=== PATIENT | male | born 1980 | race Caucasian/White ===

== ENCOUNTER 2020-09-11 00:18 | Emergency (ER) | payer OTHER, SELFPAY ==
--- NOTE | ~2020-09-11 | XR_ITS ---
EXAMINATION: XR CHEST CLINICAL INFORMATION: Fever COMPARISON: 06/21/2019 TECHNIQUE: Frontal view of the chest was obtained. FINDINGS: The lungs are well expanded. There is no focal consolidation, edema, or effusion. Bronchial wall thickening is noted. No pneumothorax. The cardiomediastinal silhouette is within normal limits. No acute osseous abnormality. XR/XR chest 1V IMPRESSION: No dense consolidation. Bronchial wall thickening can be seen with a small airways process such as asthma or atypical/viral infection.
[2020-09-11 02:27] VITALS: BP 123/73; PULSE 110; RESP 20; TEMP 39.5; O2SAT 95; BMI 24.4
--- NOTE | 2020-09-11 03:14 | ED_ITS ---
HPI - General Adult General Chief complaint: Fever Stated complaint: Pinched nerve/fever Time Seen by Provider: 09/11/20 02:45 Source: patient Mode of arrival: ambulatory Limitations: no limitations History of Present Illness HPI narrative: Patient comes to emergency room complaining of fever. Patient states he recently returned from [place], patient went to visit his daughter. Patient denies upper respiratory symptoms, no vomiting, no diarrhea. To his knowledge, patient's daughter and family in [place] are not sick with COVID. Patient also complaining of right-sided neck pain that radiates from the right side of the neck up to the scalp on the right side. Patient states he has had intermittent symptoms since 2007. Patient states that it all started while lifting weights. Related Data Home Medications Medication Instructions Recorded Confirmed No Known Home Meds 09/11/20 09/11/20 Allergies Allergy/AdvReac Type Severity Reaction Status Date / Time SEAFOOD Allergy Unknown HIVES Uncoded 09/11/20 02:33 Review of Systems Review of Systems: Constitutional : No Weight loss, complaining of fever, chills, fatigue ENT/Mouth : No Hearing loss, No Ear Pain, No Nasal Congestion, No Sinus Pain, No Hoarseness, No sore throat, No Rhinorrhea, No Swallowing Difficulty. Complaining of lateral right-sided neck pain radiating towards the scalp Eyes: No Eye Pain, No Swelling, No Redness, No Foreign Body, No Discharge, No Vision Changes Cardiovascular : No Chest Pain, No SOB, No Dyspnea on Exertion, No Orthopnea, No Edema, No Palpitations Respiratory : No Cough, No Sputum, No Wheezing, No Smoke Exposure, No Dyspnea Gastrointestinal : No Nausea, No Vomiting, No Diarrhea, No Constipation, No abdominal Pain, No Hematochezia, No Melena Genitourinary : no irregular bleeding, No Dysuria, No Urinary Frequency, No Hematuria, No Urinary Incontinence, No Urgency, No Flank Pain, No Urinary Flow Changes, No Hesitancy Musculoskeletal : No joint pain, No Myalgias, No Joint Swelling Skin : No Skin Lesions, No rash Neuro : No Weakness, No Numbness, No Paresthesias, No Loss of Consciousness, No Dizziness, No Headache Psych : No Anxiety/Panic, No Depression, No SI/HI/AH/VH, No Social Issues, Heme/Lymph: No Bruising, No Bleeding,No Lymphadenopathy Endocrine : No Polyuria, No Polydipsia, No Temperature Intolerance [facility] Past Medical History Medical History Ruw Pinched nerve in neck Social History Social History Advance Directives: No Physical Exam Vital Signs: Vital Signs: Last Vital Signs Temp 103.1 F H 09/11/20 02:27 Pulse 110 H 09/11/20 02:27 Resp 20 09/11/20 02:27 BP 123/73 09/11/20 02:27 Pulse Ox 95 09/11/20 02:27 Body Mass Index 24.4 Appearance: Alert. Oriented X3. No acute distress. Eyes: Pupils equal, round and reactive to light. ENT: Pharynx normal. Neck: Normal inspection. Neck supple. No lymph nodes noted. No crepitus, patient is able to flex and extend the neck and rotate sideways with no range of motion limit or pain CVS: Normal heart rate and rhythm. Pulses normal. Normal S1 and S2 Respiratory: No respiratory distress. Breath sounds normal. No Wheezing. No rales Abdomen: Soft and nontender. No rigidity. No distention. good BS x4 Skin: Skin warm and dry. Normal skin color. Normal skin turgor. Extremities: No lower extremity edema. No lower extremity edema. No Lacerations. No Rash Neuro: Oriented X 3. No motor deficit. No sensory deficit. Moving all exterm ities. No slurred speech. Course Course Course Narrative: Patient is afebrile, states that he feels well. Patient continues having intermittent pain, states sometimes it is on the right side, sometimes on the left side, however he is able to fully flex extend and rotate his neck with no stiffness, denies headache, no altered mental status. At this time, viral/bacterial meningitis is not suspected. However, I discussed with the patient that if he develops any neck stiffness, has any new symptoms, he needs to return to the emergency room, and in that case, he will likely need a lumbar puncture. At this time, it is likely that there to different issues going on, 1st is the acute on chronic intermittent neck pain, and 2nd issue is the new viral syndrome. Patient tested negative for COVID Medical Decision Making Lab Data Result diagrams: 09/11/20 03:39 09/11/20 03:39 Labs: Lab Results 02/09/11/20 09/11/20 Range/Units 03:39 03:39 03:39 WBC 11.1 H (4.8-10.8) X10*3/uL RBC 3.98 L (4.60-5.80) X10*6/uL Hgb 12.4 L (14.0-18.0) g/dl Hct 35.2 L (42-52) % MCV 88.4 (80-98) fL MCH 31.2 (27.0-33.0) pg MCHC 35.2 (31.0-36.0) g/dl RDW 11.9 (11.0-16.0) % Plt Count 207 (160-400) X10*3/uL MPV 9.1 L (9.4-12.4) fL Immature Gran % (Auto) 0.4 (0.0-0.4) % Neut % (Auto) 75.7 H (45-73) % Lymph % (Auto) 16.0 L (20-40) % Braxton % (Auto) 7.7 (2-11) % Eos % (Auto) 0.1 (0-4) % Baso % (Auto) 0.1 (0-2) % Lymph # (Auto) 1.8 (1.2-4.9) X10*3/uL Braxton # (Auto) 0.9 (0.1-1.2) X10*3/uL Eos # (Auto) 0.0 (0.0-0.4) X10*3/uL Baso # (Auto) 0.0 (0.0-0.2) X10*3/uL Abs Immat Gran (auto) 0.05 H (0.00-0.03) X10*3/uL Absolute Neuts (auto) 8.4 H (2.0-8.3) X10*3/uL Absolute Nucleated RBC 0.000 (0.0-0.012) X10*3/uL Nucleated RBC % (auto) 0.0 (0.0-0.2) /100WBC Sodium 137 (135-145) mmol/L Potassium 3.5 (3.3-5.1) mmol/L Chloride 105 (96-108) mmol/L Carbon Dioxide 22 (22-29) mmol/L Anion Gap 14 (12-20) BUN 12 (9-16) mg/dL Creatinine 1.11 (0.5-1.4) mg/dL Estim Creat Clear Calc 95.1 Estimated GFR > 60 Random Glucose 116 H (60-115) mg/dL Lactic Acid 0.9 (0.5-2.0) mmol/L Calcium 8.0 L (8.4-10.2) mg/dL Coronavirus (PCR) (Negative) Influenza Type A (PCR) (Negative) Influenza Type B (PCR) (Negative) RSV RNA Qual (PCR) (Negative) 09/11/20 Range/Units 03:39 WBC (4.8-10.8) X10*3/uL RBC (4.60-5.80) X10*6/uL Hgb (14.0-18.0) g/dl Hct (42-52) % MCV (80-98) fL MCH (27.0-33.0) pg MCHC (31.0-36.0) g/dl RDW (11.0-16.0) % Plt Count (160-400) X10*3/uL MPV (9.4-12.4) fL Immature Gran % (Auto) (0.0-0.4) % Neut % (Auto) (45-73) % Lymph % (Auto) (20-40) % Braxton % (Auto) (2-11) % Eos % (Auto) (0-4) % Baso % (Auto) (0-2) % Lymph # (Auto) (1.2-4.9) X10*3/uL Braxton # (Auto) (0.1-1.2) X10*3/uL Eos # (Auto) (0.0-0.4) X10*3/uL Baso # (Auto) (0.0-0.2) X10*3/uL Abs Immat Gran (auto) (0.00-0.03) X10*3/uL Absolute Neuts (auto) (2.0-8.3) X10*3/uL Absolute Nucleated RBC (0.0-0.012) X10*3/uL Nucleated RBC % (auto) (0.0-0.2) /100WBC Sodium (135-145) mmol/L Potassium (3.3-5.1) mmol/L Chloride (96-108) mmol/L Carbon Dioxide (22-29) mmol/L Anion Gap (12-20) BUN (9-16) mg/dL Creatinine (0.5-1.4) mg/dL Estim Creat Clear Calc Estimated GFR Random Glucose (60-115) mg/dL Lactic Acid (0.5-2.0) mmol/L Calcium (8.4-10.2) mg/dL Coronavirus (PCR) NEGATIVE (Negative) Influenza Type A (PCR) NEGATIVE (Negative) Influenza Type B (PCR) NEGATIVE (Negative) RSV RNA Qual (PCR) NEGATIVE (Negative) Imaging Data Chest x-ray: Radiologist's impression: The lungs are well expanded. There is no focal consolidation, edema, or effusion. Bronchial wall thickening is noted. No pneumothorax. The cardiomediastinal silhouette is within normal limits. No acute osseous abnormality. XR/XR chest 1V IMPRESSION: No dense consolidation. Bronchial wall thickening can be seen with a small airways process such as asthma or atypical/viral infection. Discharge Plan Discharge Clinical Impression: Acute viral syndrome Patient Disposition: Home, Self-Care Instructions: Viral Syndrome (ED) Additional Instructions: If you have any neck stiffness, headache, any new symptoms, please return to the emergency room. Please follow-up with your primary care physician tomorrow. If you have any worsening or new symptoms, please return to the emergency room or call 911 Prescriptions: No Action No Known Home Meds RF: 0
[2020-09-11 03:51] LABS: MANUAL DIFF FLAG NO
[2020-09-11 03:52] LABS: Basophils Percent Auto 0.1 % (0-2); Eosinophils Percent Auto 0.1 % (0-4); Hematocrit 35.2 % (42-52); Hemoglobin 12.4 g/dl (14.0-18.0); Imm Gran Abs Auto 0.05 X10*3/uL (0.00-0.03); Imm Gran Pct Auto 0.4 % (0.0-0.4); Lymphocytes Absolute Auto 1.8 X10*3/uL (1.2-4.9); Mean Corpuscular HGB Conc 35.2 g/dl (31.0-36.0); Mean Corpuscular Hemoglobin 31.2 pg (27.0-33.0); Mean Corpuscular Volume 88.4 fL (80-98); Mean Platelet Volume 9.1 fL (9.4-12.4); Monocytes Absolute Auto 0.9 X10*3/uL (0.1-1.2); Monocytes Percent Auto 7.7 % (2-11); Neutrophils Absolute Auto 8.4 X10*3/uL (2.0-8.3); Neutrophils Percent Auto 75.7 % (45-73); Platelet Count 207 X10*3/uL (160-400); Red Blood Count 3.98 X10*6/uL (4.60-5.80); Red Cell Distribution Width 11.9 % (11.0-16.0); White Blood Count 11.1 X10*3/uL (4.8-10.8)
[2020-09-11 04:00] VITALS: BP 134/78; PULSE 96; RESP 16; O2SAT 98
[2020-09-11] MEDS: Acetaminophen 325 MG TABLET 650 MG PO (04:19)
[2020-09-11] MEDS: 0.9 % Sodium Chloride 1,000 ML 999 ML IVCONT (04:19)
[2020-09-11 04:25] LABS: Lactic Acid 0.9 mmol/L (0.5-2.0)
[2020-09-11 04:28] LABS: Anion Gap 14 (12-20); Blood Urea Nitrogen 12 mg/dL (9-16); Carbon Dioxide 22 mmol/L (22-29); Chloride 105 mmol/L (96-108); Creatinine Clr Calc Pharmacy 95.1; Estimated Glomerular Filt Rate > 60; Glucose Random 116 mg/dL (60-115); Potassium 3.5 mmol/L (3.3-5.1); Sodium 137 mmol/L (135-145)
[2020-09-11 04:44] LABS: Influenza A PCR NEGATIVE (Negative); Influenza B PCR NEGATIVE (Negative); Resp Syncy Virus RNA Qual PCR NEGATIVE (Negative); SARS COV2 PCR INHOUSE NEGATIVE (Negative)
[2020-09-11 06:00] VITALS: BP 112/63; PULSE 87; RESP 16; TEMP 37.7; O2SAT 99
== END 2020-09-11 06:30 | disposition home or self-care (01) ==
PROVIDERS: Emergency Provider Emergency Medicine; PCP Family Medicine
DX: B34.9 Viral infection, unspecified (principal); Z20.822 Contact with and (suspected) exposure to COVID-19
CPT/HCPCS: 0241U; 36415; 71045; 80048; 83605; 85025; 87040; 96360; 99284; 99285

== ENCOUNTER 2020-11-05 18:21 | Outpatient (REF) | payer OTHER, SELFPAY ==
--- NOTE | ~2020-11-05 | MR_ITS ---
MR CERVICAL SPINE WITHOUT CONTRAST CLINICAL INFORMATION: Cervical radiculopathy. COMPARISON: None available. TECHNIQUE: MRI of the cervical spine was obtained using routine sequences without contrast. FINDINGS: Severe leftward convex scoliotic curvature of the thoracic spine. Straightening the cervical lordosis. The vertebral body heights are maintained. There is mild disc volume loss at C5-C6. There is no bone marrow edema. There are no acute fractures. Craniocervical junction is unremarkable. There is no cord signal abnormality. The cervical arterial flow voids are maintained. No significant soft tissue findings. Partially imaged intracranial compartment is unremarkable. C2-C3: Advanced right-sided facet arthropathy results in mild to moderate right-sided foraminal stenosis. No central canal and no left foraminal stenosis. C3-C4: Shallow central disc protrusion without central canal stenosis. Bilateral. No foraminal stenosis. C4-C5: Disc osteophyte results in mild to moderate central canal stenosis. Uncovertebral joint spurring and facet arthropathy result in moderate to severe left-sided foraminal stenosis. C5-C6: Disc osteophyte results in mild to moderate central canal stenosis. Uncovertebral joint hypertrophy and hypertrophic facet arthropathy result in severe left-sided foraminal stenosis. C6-C7: Disc osteophyte results in mild to moderate central canal stenosis. Uncovertebral joint spurring and facet arthropathy result in mild right-sided foraminal encroachment. C7-T1: Slight annular disc bulge. No central canal stenosis and no foraminal stenosis. MR/MR cervical spine wo con IMPRESSION: - Multilevel cervical spondylosis. Spondylitic changes result in mild to moderate central canal stenosis and slight flattening of the ventral cord at the C4-C5, C5-C6, and C6-C7 levels. Spondylitic changes also result in mild to moderate right C2-C3, moderate to severe left C4-C5, severe left C5-C6, and mild right C6-C7 foraminal stenosis. - Partially imaged severe leftward convex scoliotic curvature of the thoracic spine.
== END 2020-11-05 18:22 | disposition home or self-care (01) ==
LOC: HO.MRI 18:21
PROVIDERS: Visit Provider Neurological Surgery
DX: M54.12 Radiculopathy, cervical region (principal)
CPT/HCPCS: 72141

== ENCOUNTER 2021-12-26 18:59 | Emergency (ER) | payer OTHER, SELFPAY ==
[2021-12-26 19:10] VITALS: BP 109/77; PULSE 71; RESP 15; TEMP 36.9; O2SAT 100; BMI 25.7
== END 2021-12-26 19:58 | disposition left against medical advice (07) ==
PROVIDERS: Emergency Provider Emergency Medicine; PCP Internal Medicine
DX: M54.50 Low back pain, unspecified (principal); M62.830 Muscle spasm of back
CPT/HCPCS: 99281

== ENCOUNTER 2023-01-24 11:08 | Emergency (ER) | payer SELFPAY ==
[2023-01-24 11:52] VITALS: BP 111/57; PULSE 69; RESP 18; TEMP 37; O2SAT 98; BMI 25.8
[2023-01-24 14:42] VITALS: BP 126/77; PULSE 63; RESP 18; TEMP 36.3; O2SAT 99
--- NOTE | 2023-01-24 14:57 | PC.NURSE ---
pt medicated per SEP for 03/01 rigth shoulder pain
--- NOTE | 2023-01-24 15:08 | ED.EXTPRO ---
HPI - Extremity Problem General Chief complaint: Extremity Injury, Upper Stated complaint: R Shoulder & Back Pain Time Seen by Provider: 01/24/23 14:02 Source: patient Mode of arrival: ambulatory Limitations: no limitations History of Present Illness HPI Narrative: Patient is a 42 year old male with no medical history presents with 2 weeks of right shoulder pain following exercise. Patient reports the pain is located in his right shoulder, the right side of his neck, and down his upper arm at times. Patient reports it feels tight and pinching . Patient reports limited overhead movement of the right arm. Patient denies taking any medications or using heat/cold packs to treat the pain. He reports heavy lifiting at gym usually and does dips often. Also reports he has still been going to the gym over the past few weeks however lifting less than usual. Patient denies fever, chills, night sweats, nausea, vomiting, headache, vision changes, numbness, or tingling. Related Data Previous Rx's Medication Instructions Recorded cyclobenzaprine 10 mg tablet 10 mg PO BEDTIME PRN muscle spasm 09/13/20 10 days #30 tabs ibuprofen 800 mg tablet 800 mg PO Q8H PRN pain 10 days #30 09/13/20 tabs ketorolac 10 mg tablet 10 mg PO TID PRN pain 5 days #15 01/24/23 tabs lidocaine 5 % topical patch 1 patch topical DAILY PRN pain #15 01/24/23 ea Allergies Allergy/AdvReac Type Severity Reaction Status Date / Time SEAFOOD Allergy Unknown HIVES Uncoded 09/11/20 02:33 Review of Systems Review of Systems: Constitutional : No Weight loss, No Fever, No Chills, No Fatigue, No Malaise ENT/Mouth : No sore throat, No Rhinorrhea Eyes: No Eye Pain, No Swelling, No Redness Cardiovascular : No Chest Pain, No SOB, No Dyspnea on Exertion, No Orthopnea, No Edema, No Palpitations Respiratory : No Cough, No Sputum, No Wheezing Gastrointestinal : No Nausea, No Vomiting, No Diarrhea, No Constipation, No abdominal Pain, No Hematochezia, No Melena Genitourinary : No Dysuria, No Urinary Frequency, No Hematuria, Musculoskeletal : + joint pain, No Myalgias, + Joint Swelling Skin : No Skin Lesions, No rash Neuro : No Weakness, No Numbness, No Dizziness, No Headache Psych : No Anxiety/Panic, No Depression All other systems reviewed and are negative Yes all other systems are reviewed and are negative [facility] Past Medical History Attestation statement: The following information was validated with the patient. Source: old records reviewed and nursing notes reviewed Medical History (Updated 01/24/23 @ 15:27 by JESSICA Churchill) [place] Physical exam Pinched nerve in neck Family History Family History Mother No problems noted. Father No problems noted. Social History Social History Alcohol intake: current Alcohol intake frequency: former alcohol drinker Advance Directives: No Advance Directives Information Provided: Yes Physical Exam Vital Signs: Vital Signs: Last Vital Signs Temp 97.4 F 01/24/23 14:42 Pulse 63 01/24/23 14:42 Resp 18 01/24/23 14:42 BP 126/77 01/24/23 14:42 Pulse Ox 99 01/24/23 14:42 O2 Del Method Room Air 01/24/23 14:42 BMI result Body Mass Index 25.8 VSS Appearance: Alert.? Oriented X3.? No acute distress.? Head: Normocephalic, atraumatic, no step-offs or deformities Eyes: Pupils equal, round and reactive to light.? Neck: Normal inspection.? Neck supple.? CVS: Normal heart rate and rhythm.? Pulses normal.? Respiratory: No respiratory distress.? Breath sounds normal.? Abdomen: Soft and nontender.? Skin: Skin warm and dry.? Normal skin color.? Normal skin turgor.? Extremities: Limited overhead ROM of the right upper extremity. Tenderness to palpation to the right shoulder region to distal clavicle region. 2+ radial pulses equal and b/l. No wrist drop. Normal cap refill <2 seconds to b/l UE digits. 5/5 strength to bilateral upper and lower extremities Back: No midline tenderness, no C-spine tenderness, full range of motion, no CVA tenderness bilaterally Neuro: Oriented X 3.? No motor deficit.? No sensory deficit. CN 2-12 intact Course Reevaluation(s) Reevaluation #1: xray unremarkable. patient dc home w/ tordol. Ortho follow up encouraged. Eduated on worrisome signs and sx. Patient verbalizes understanding. Time: 17:03 Medications Administered Discontinued Medications Generic Name Dose Route Start Last Admin Trade Name Cheryl PRN Reason Stop Dose Admin Ketorolac Tromethamine 30 mg 01/24/23 14:51 01/24/23 14:55 Ketorolac Tromethamine 15 Mg/Ml Vial IM 01/24/23 14:52 30 mg ONCE ONE Administration Medical Decision Making Medical Decision Making MDM Narrative: Patient is a 42 year old male with no past medical history presenting with 2 weeks of right shoulder pain and limited overhead range of motion which started after exercising at the gym. Physical exam shows limited overhead ROM of the right upper extremity and some tenderness to palpation to distal clavicle region. 2+ radial pulses equal and b/l. No wrist drop. Normal cap refill <2 seconds to b/l UE digits. Patient most likely is experiencing tendonitis/ ligament injury vs spasm, vs muscle tear vs rotator cuff injury. Unlikely fx, dislocaiton, threat to limb, no signs of NV compromise. Plan- xray, medication w/ torol reeval Differential Diagnosis Differential Diagnoses: The differential diagnosis associated with the presentation includes Patient most likely is experiencing tendonitis/ ligament injury vs spasm, vs muscle tear vs rotator cuff injury. Unlikely fx, dislocaiton, threat to limb, no signs of NV compromise. Admission/Observation Consideration of admission/observation: Escalation of care including admission/observation considered Unlikely Independent Interpretation I performed an independent interpretation of an: Plain X-Ray (normal ) Radiology Impression Discussion of test interpretation with radiology: I have reviewed the radiologist's reading. Prescription Management I considered prescription management with: Pain Medication (toradol ) Core Measures AMI core measures followed: Yes Measure exclusions: not indicated Critical Care Time Critical Care Time Critical Care Time: No Discharge Plan Discharge Clinical Impression: Pain in right shoulder, Shoulder tendinitis Patient Disposition: Home, Self-Care Instructions: Rotator Cuff Tendinitis (ED), Shoulder Pain (ED) Additional Instructions: Take your medications as prescribed. If you were prescribed antibiotics today, it is important that you take your medication to their entirety, do not skip any doses, do not finish them early. Follow-up with your primary care provider this week. Return to the emergency department with new or worsening symptoms. Such as fevers, chills, chest pain, shortness of breath, nausea, vomiting, dizziness, headache, vision changes, lethargy In case of emergency call 911 Toradol has been sent to your pharmacy, you tolerated this well in the department. Please take this as prescribed do not take this with ibuprofen, or other NSAIDs, do not mix this with alcohol. Side effects of this medication including increased risk for bleeding and possible kidney injury. Follow-up with the orthopedic team if needed Prescriptions: New ketorolac 10 mg tablet 10 mg PO TID PRN (Reason: pain) 5 Days Qty: 15 0RF lidocaine 5 % adhesive patch,medicated 1 patch topical DAILY PRN (Reason: pain) Qty: 15 0RF Rx Instructions: leave on most painful area for up to 12 hrs No Action ibuprofen 800 mg tablet 800 mg PO Q8H PRN (Reason: pain) 10 Days Qty: 30 0RF cyclobenzaprine 10 mg tablet 10 mg PO BEDTIME PRN (Reason: muscle spasm) 10 Days Qty: 30 0RF Referrals: [facility] [place] Orthopedic Surgeons [Provider Group] - 2 weeks Arturo Vega MD [Primary Care Provider] - 2 days Stand Alone Forms: Work/School Release Interventions: ED Discharge Assessment Last Done: 01/24/23 16:53 Discharge Date/Time: 01/24/23 16:54
== END 2023-01-24 16:54 | disposition home or self-care (01) ==
PROVIDERS: Emergency Provider Emergency Medicine Emergency Medical Services; PCP Internal Medicine
DX: M25.511 Pain in right shoulder (principal); M77.8 Other enthesopathies, not elsewhere classified
CPT/HCPCS: 73030; 96372; 99284; J1885

== ENCOUNTER 2023-02-20 12:52 | Emergency (ER) | payer MEDICAID, SELFPAY ==
[2023-02-20 12:58] VITALS: BP 123/80; PULSE 84; RESP 20; TEMP 36.3; O2SAT 97; BMI 26.1
--- NOTE | 2023-02-20 12:59 | ED_ITS ---
HPI - General Adult General Chief complaint: General Medical Stated complaint: Hemorrhoids Time Seen by Provider: 02/20/23 13:42 Source: patient Limitations: language barrier History of Present Illness HPI narrative: 43-year-old male who presents to the ER complaining of hemorrhoids. 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 Patient states no prior history of hemorrhoids. patient states he has been constipated recently. No nausea vomiting abdominal pain at this time. No prior history of similar episodes. Symptoms mild to moderate pain 8/. No other complaints Related Data Previous Rx's Medication Instructions Recorded cyclobenzaprine 10 mg tablet 10 mg PO BEDTIME PRN muscle spasm 09/13/20 10 days #30 tabs ibuprofen 800 mg tablet 800 mg PO Q8H PRN pain 10 days #30 09/13/20 tabs ketorolac 10 mg tablet 10 mg PO TID PRN pain 5 days #15 01/24/23 tabs lidocaine 5 % topical patch 1 patch topical DAILY PRN pain #15 01/24/23 ea docusate sodium 100 mg capsule 100 mg PO BID #20 caps 02/20/23 (Colace) hydrocortisone 2.5 % topical cream 1 appl MA BID PRN hemorrhoids 7 02/20/23 with perineal applicator days #30 grams (Anusol-HC) Allergies Allergy/AdvReac Type Severity Reaction Status Date / Time SEAFOOD Allergy Unknown HIVES Uncoded 09/11/20 02:33 Review of Systems Review of Systems: General: No fever, no chills Ophthalmology: No vision changes, no discharge ENT: No sore throat, no ear pain Cardiovascular: No chest pain, no peripheral edema, no shortness of breath Respiratory: No dyspnea, no sputum production, no cough Muscle skeletal: No malaise, no back pain, no neck pain, no extremity pain GI: Positive hemorrhoids Psychiatric: No depression, no suicidal ideation, no homicidal ideation Skin: No rash PMFSH Past Medical History Attestation statement: The following information was validated with the patient. Medical History [place] Physical exam Pinched nerve in neck Family History Family History Mother No problems noted. Father No problems noted. Social History Social History Alcohol intake: current Alcohol intake frequency: former alcohol drinker Advance Directives: No Advance Directives Information Provided: Yes Physical Exam ED Vital Signs: Vital Signs - 24 hr 02/20/23 12:58 Temperature 97.3 F Pulse Rate 84 Respiratory Rate 20 Blood Pressure 123/80 Pulse Oximetry 97 Oxygen Delivery Method Room Air BMI result Body Mass Index 26.1 General appearance: Awake, alert, cooperative, in no acute distress Skin: Warm, dry, no rash Eyes: no icterus ENT: Oropharynx normal, uvula midline Neck: Soft supple full range of motion Pulmonary: Breath sounds clear to auscultation bilaterally, no accessory muscle use Cardiovascular: Regular rate and rhythm, no murmurs and rubs Abdomen: Soft nontender, no rebound or guarding, positive bowel sounds Rectal: Positive to moderate sized hemorrhoids fluctuant in nature do not appear thrombosed positive tenderness Extremities: No deformity, nontender, no peripheral edema noted Neuro: Alert oriented x3, no focal deficit Psych: Normal affect Course Course Course Narrative: RME - 43 yo male presenting with hemorrhoid pain for the last 3 days. Was recently constipated but last BM yesterday and it was normal. Using OTC cream with no relief. Scant bleeding. Has pain w/ sitting and itching Plan: rectal exam Medical Decision Making Medical Decision Making [facility] Narrative: 43-year-old male complaining of hemorrhoids since Sunday. Recent episode of constipation no similar episodes in the past. On exam patient has fluctuating moderate-sized hemorrhoid will refer to albert marvin for continued management will place on Anusol and Colace at this time Differential Diagnosis Hemorrhoids Constipation Thrombosed hemorrhoid Discharge Plan Discharge Clinical Impression: External hemorrhoid Patient Disposition: Home, Self-Care Instructions: Hemorrhoids (ED) Additional Instructions: Follow-up with surgeon for continued management of her hemorrhoids. Medications as directed Return if symptoms worsen Prescriptions: New docusate sodium [Colace] 100 mg capsule 100 mg PO BID Qty: 20 0RF hydrocortisone [Anusol-HC] 2.5 % cream with perineal applicator 1 appl MA BID PRN (Reason: hemorrhoids) 7 Days Qty: 30 0RF No Action ketorolac 10 mg tablet 10 mg PO TID PRN (Reason: pain) 5 Days Qty: 15 0RF lidocaine 5 % adhesive patch,medicated 1 patch topical DAILY PRN (Reason: pain) Qty: 15 0RF Rx Instructions: leave on most painful area for up to 12 hrs ibuprofen 800 mg tablet 800 mg PO Q8H PRN (Reason: pain) 10 Days Qty: 30 0RF cyclobenzaprine 10 mg tablet 10 mg PO BEDTIME PRN (Reason: muscle spasm) 10 Days Qty: 30 0RF Referrals: Vishnu Saeed MD [Physician] - ( non thrombosed external hemorrhoids) Stand Alone Forms: Work/School Release
== END 2023-02-20 14:21 | disposition home or self-care (01) ==
PROVIDERS: Emergency Provider Emergency Medicine; PCP Internal Medicine
DX: K64.4 Residual hemorrhoidal skin tags (principal)
CPT/HCPCS: 99282; 99283

== ENCOUNTER 2023-02-28 13:32 | Outpatient (AMB) | payer OTHER, SELFPAY ==
--- NOTE | 2023-02-28 13:41 | A.OFFVIS_ITS ---
Intake Vital Signs 02/28/23 13:47 Height 5 ft 11 in Weight 188 lb BMI 26.2 BP 117/57 L Blood Pressure Location Rt brachial Position Sitting Pulse 73 Intake Visit Reasons: Hemorrhoids Intake Note: This patient presents for an assessment for hemorrhoids. Patient c/o; denies rectal bleeding, reports pain, denies constipation. Learning Consultant Required: No Accompanied by: Self / Same As Patient Allergies SEAFOOD Allergy (Unknown, Uncoded 09/11/20 02:33) HIVES Medication List - Last Reconciled 02/28/23 by Wander Rose MD cyclobenzaprine 10 mg PO BEDTIME PRN 10 days docusate sodium (Colace) 100 mg PO BID hydrocortisone 2.5% (Anusol-HC) 1 appl [place] BID PRN 7 days ibuprofen 800 mg PO Q8H PRN 10 days ketorolac 10 mg PO TID PRN 5 days lidocaine 5% 1 patch topical DAILY PRN HPI Hemorrhoids HPI Details 43-year-old male here for problematic hemorrhoids. He says about 10 days ago, he was having multiple bowel movement because of what he thought was diarrhea. After that, he noticed that he had an area of swelling outside the anus. He says this was firm and was very painful then for a few days. He would notice a lot of blood as well with bowel movements. He says that since the past few days, this swelling has gone down significantly. He does still notice blood on wiping periodically after bowel movements. He says he does not have any problem with constipation. 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 [facility], [facility] Medical History (Updated 02/28/23 @ 14:01 by Wander Rose MD) [place] Physical exam Pinched nerve in neck Thrombosed external hemorrhoids Family History Mother No problems noted. Father No problems noted. Social History Alcohol intake: current Alcohol intake frequency: former alcohol drinker Review of Systems Const Denies chills and Denies fever(s) Card Denies chest pain, Denies dyspnea and Denies dyspnea on exertion Resp Denies cough, Denies dyspnea and Denies dyspnea on exertion GI Reports hematochezia and Denies change in bowel habits Denies hematuria and Denies difficulty urinating Musc Denies back pain and Denies limited range of motion Neuro Denies focal weakness and Denies convulsions Psych Denies depression and Denies mood swings Physical Exam Vital Signs: Last Vital Signs Pulse 73 02/28/23 13:47 BP 117/57 L 02/28/23 13:47 BMI result Body Mass Index 26.2 Const General: comfortable and no acute distress Orientation/consciousness: patient oriented x3 Neck Neck: Yes no lymphadenopathy Resp Auscultation: clear to auscultation bilaterally Cardio Rhythm: regular rhythm GI Other: Rectal exam she does large external hemorrhoids mostly on the left side Palpation (GI): Soft to palpation, nontender and no guarding Neuro General: patient oriented x3 Office Procedures Anoscopy He was in yosi-knife position. The anoscope was gently inserted. A full examination of the anal canal was done. He had large thrombosed hemorrhoids on the left and right side although these were nonpainful. He have any fissure any other lesions. There was some blood seen on the anoscope and the exam finger. There was no induration. [id number] Assessment & Plan Assessment & Plan (1) Thrombosed external hemorrhoids: Code(s): K64.5 - Perianal venous thrombosis Plan: He has large thrombosed external hemorrhoids. His pain and I are on the down swing so I told him we do not need to proceed with drainage at this time. I instructed him to do warm soaks to the area or hot Sitz baths. I will prescribe him Calmoseptine to help with this discomfort I will see him again in about 2-3 weeks as he says he seems to be interested in hemorrhoidectomy for this. Coding Level of Care Code New Pt Level 3 (44414) Diagnoses Thrombosed external hemorrhoids K64.5 CPT Codes Details - CPT: 46647-[id number] ([id number])
[2023-02-28 13:47] VITALS: BP 117/57; PULSE 73; BMI 26.2
== END 2023-02-28 14:03 | disposition home or self-care (01) ==
PROVIDERS: PCP Internal Medicine; Visit Provider Surgery
DX: K64.5 Perianal venous thrombosis (principal)
CPT/HCPCS: 46600; 99203

== ENCOUNTER → 2023-02-28 13:32 | Outpatient (BNVA) | payer OTHER, SELFPAY | PROVIDERS: PCP Internal Medicine; Visit Provider Surgery | DX: K64.5 Perianal venous thrombosis (principal) | CPT/HCPCS: 46600; 99202 ==

== ENCOUNTER 2023-03-22 11:04 | Outpatient (AMB) | payer OTHER, SELFPAY ==
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
[2023-03-22 11:12] VITALS: BP 140/62; PULSE 96; O2SAT 97; BMI 25.7
== END 2023-03-22 11:43 | disposition home or self-care (01) ==
PROVIDERS: PCP Internal Medicine; Visit Provider Internal Medicine
DX: S01.00XA Unspecified open wound of scalp, initial encounter (principal)
CPT/HCPCS: 99214

== ENCOUNTER → 2023-03-27 13:25 | Outpatient (AMB) | payer OTHER, SELFPAY ==
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
[2023-03-27 13:32] VITALS: BP 118/68; PULSE 88; O2SAT 98; BMI 25.3
== END ==
PROVIDERS: PCP Internal Medicine; Visit Provider Family Medicine
DX: S01.00XA Unspecified open wound of scalp, initial encounter (principal)
CPT/HCPCS: 99213